=== PATIENT | male | born 1995 | race Caucasian/White ===

== ENCOUNTER 2018-05-02 19:09 | Emergency (ER) | payer OTHER ==
[~2018-05-02] VITALS: Ht 172.7 cm; Wt 74.8 kg
[2018-05-02 19:33] VITALS: BP 124/78
[2018-05-02 20:12] LABS: ABSOLUTE BASOPHIL COUNT 0 /CUMM (0.0-0.2); ABSOLUTE EOSINOPHIL COUNT 0 /CUMM (0.0-0.7); ABSOLUTE LYMPH COUNT 1.4 /CUMM (1.2-3.4); ABSOLUTE MONOCYTE COUNT 0.4 /CUMM (0.10-0.60); BASOPHIL % 0.2 % (0.0-2.0); EOSINOPHIL % 0.1 % (0-5); GRANULOCYTE % 85.9 % (42.2-75.2); HEMATOCRIT 49.8 % (42-52); MEAN CORPUSCULAR HGB 28.5 PG (27.0-31.0); MEAN CORPUSCULAR HGB CONC 34.1 G/DL (33.0-37.0); MEAN CORPUSCULAR VOLUME 83.5 FL (80.0-94.0); PLATELET COUNT 276 /CUMM (130-400); RBC DISTRIBUTION WIDTH 12.3 % (11.5-14.5); RED BLOOD CELL CT 5.96 /CUMM (4.70-6.10); WHITE BLOOD CELL COUNT 12.9 /CUMM (4.8-10.8)
--- NOTE | 2018-05-02 20:21 | RADIOLOGY REPORT ---
EXAMINATION: XR CHEST CLINICAL INFORMATION: Disease, near syncope, EKG changes COMPARISON: None TECHNIQUE: 2 views of the chest were obtained. FINDINGS: No significant abnormality is noted involving the heart, lungs, mediastinum, bony thorax or soft tissues. IMPRESSION: Unremarkable examination.
--- NOTE | 2018-05-02 21:18 | ED GENERAL ADULT ---
History of Present Illness General Chief Complaint: General Adult Stated Complaint: SIB WALK IN FOR IRREGULAREKGU Source: patient Exam Limitations: no limitations Vital Signs & Intake/Output Vital Signs & Intake/Output Vital Signs Date Time Temp Pulse Resp B/P B/P Pulse O2 O2 Flow FiO2 Mean Ox Delivery Rate 05/02 1933 98.0 112 18 124/78 97 Room Air ED Intake and Output 05/03 0000 05/02 1200 Intake Total Output Total Balance Patient 165 lb Weight Allergies Coded Allergies: No Known Allergies (05/02/18) Triage Note: 22M HAS BEEN FEELING LIGHTHEADED AND DIZZY TODAY, AT 12PM AND WENT TO WALK IN AROUND 5:30PM DUE TO ABNORMAL EKG. APPEARS TO HAVE ST SEGMENT CHANGES TO INFERIOR LEADS AND PVC'S. DENIES ANY CHEST PAIN. HAS HAD UNRESOLVED NAUSEA ALL DAY AND DENIES VOMITING. DENIES PALPITATIONS. ONLY PAIN REPORTED IS HEADACHE SINCE THIS MORNING WITH DOUBLE VISION Triage Nurses Notes Reviewed? yes Onset: Gradual Duration: hour(s): Injury Environment: work HPI: 22yo male presents to ED sent in by urgent care for "abnormal EKG". Patient states that earlier today while he was at work he began feeling dizziness, nausea, headache. Patient states he went to urgent care for evaluation and they sent him here because his EKG was abnormal. Patient states that currently his symptoms have improved however he does feel mild headache at this time. Patient denies chest pain, dyspnea, fevers, chills, sick contact, vomiting. (Missy Durand) Past History Travel History Traveled to [place] past 21 day No Medical History Any Pertinent Medical History? none Surgical History Surgical History: non-contributory Psychosocial History What is your primary language [place] Tobacco Use: Never used Family History Hx Contributory? No (Missy Durand) Review of Systems Review of Systems Constitutional: Reports: see HPI. EENTM: Reports: no symptoms. Respiratory: Reports: no symptoms. Cardiovascular: Reports: see HPI. GI: Reports: see HPI. Genitourinary: Reports: no symptoms. Musculoskeletal: Reports: no symptoms. Skin: Reports: no symptoms. Neurological/Psychological: Reports: see HPI. Hematologic/Endocrine: Reports: no symptoms. Immunologic/Allergic: Reports: no symptoms. All Other Systems: Reviewed and Negative (Missy Durand) Physical Exam Physical Exam General Appearance: well developed/nourished, no apparent distress, alert, awake Head: atraumatic, normal appearance Eyes: Bilateral: normal appearance. Ears, Nose, Throat: hearing grossly normal Neck: normal inspection, supple, full range of motion Respiratory: normal breath sounds, no respiratory distress, lungs clear Cardiovascular: regular rate/rhythm Gastrointestinal: normal bowel sounds, soft, non-tender, no organomegaly Back: normal inspection, normal range of motion Extremities: normal inspection, normal range of motion Neurologic/Psych: awake, alert, oriented x 3, sieve repairer II-XII nml as tested, cerebellar testing within normal limits Skin: intact, normal color, warm/dry Core Measures ACS in differential dx? No CVA/TIA Diagnosis: No Sepsis Present: No Sepsis Focused Exam Completed? No (Norma DENNISON,Missy Verdugo) Progress Differential Diagnoses I considered the following diagnoses in my evaluation of the patient: [ Arrhythmia, electrolyte abnormality, anemia, vertigo, gastroenteritis, viral syndrome, PE] Plan of Care: Orders Procedure Date/time Status THYROID STIMULATING HORMONE 05/02 1959 Complete FREE T4 05/02 1959 Complete TROPONIN LEVEL 05/02 1939 Complete D-DIMER 05/02 1939 Complete COMPREHENSIVE METABOLIC PANEL 05/02 1939 Complete CBC WITHOUT DIFFERENTIAL 05/02 1939 Complete EKG 05/02 1923 Active Laboratory Tests 05/02/181958: Anion Gap 14, Estimated GFR > 60, BUN/Creatinine Ratio 18.3, Glucose 120 H, Calcium 10.4 H, Total Bilirubin 0.7, AST 30, ALT 58, Alkaline Phosphatase 50, Troponin I < 0.01, Total Protein 8.5 H, Albumin 5.0, Globulin 3.5, Albumin/ Globulin Ratio 1.4, TSH 0.931, Free T4 1.25, D-Dimer High Sensitivty < 200, CBC w Diff NO MAN DIFF REQ, RBC 5.96, MCV 83.5, MCH 28.5, MCHC 34.1, RDW 12.3, MPV 8.0, Gran % 85.9 H, Lymphocytes % 10.8 L, Monocytes % 3.0, Eosinophils % 0.1, Basophils % 0.2, Absolute Granulocytes 11.0 H, Absolute Lymphocytes 1.4, Absolute Monocytes 0.4, Absolute Eosinophils 0, Absolute Basophils 0 05/02/181946: TSH Cancelled, Free T4 Cancelled EKG from urgent care shows sinus rhythm with PVCs, stable. EKG here in the emergency department is stable, sinus rhythm, no acute ischemic changes. Patient's labs are stable, no electrolyte abnormality, troponin enzyme negative, d-dimer negative. No abnormal findings on exam. Patient feels ready to go home at this time. He was offered Zofran here in the emergency room on however he declines. He was given a referral to primary care. He is also given strict return precautions. The patient agrees with plan of care. Diagnostic Imaging: Viewed by Me: Radiology Read. Discussed w/RAD: Radiology Read. Radiology Impression: PATIENT: CJ RAMESH PRESENT AGE : 22 PATIENT ACCOUNT NO: [id number] : 94 LOCATION: [facility] ORDERING PHYSICIAN: Deyvi Kennedy MD SERVICE DATE: 05/02/18 EXAM TYPE: RAD - XRY-CHEST XRAY, TWO VIEWS EXAMINATION: XR CHEST CLINICAL INFORMATION: Disease, near syncope, EKG changes COMPARISON: None TECHNIQUE: 2 views of the chest were obtained. FINDINGS: No significant abnormality is noted involving the heart, lungs, mediastinum, bony thorax or soft tissues. IMPRESSION: Unremarkable examination. DICTATED BY: Marquita Bauman MD DATE/TIME DICTATED:05/02/182017 COMPENSATION VICE PRESIDENT:MARLYS DATE/TIME TRANSCRIBED:05/02/182017 CONFIDENTIAL, DO NOT COPY WITHOUT APPROPRIATE AUTHORIZATION. <Electronically signed in Other Vendor System> SIGNED BY: Marquita Bauman MD 05/02/182020 Initial ED EKG: sinus rhythm @89bpm, nonspecific ST changes Prior EKG: unchanged (PVCs) (Norma DENNISON,Missy Verdugo) Departure Departure Disposition: HOME OR SELF CARE Condition: Stable Clinical Impression Primary Impression: Dizziness Secondary Impressions: Headache, Nausea Referrals: Patient Has No Primary Care Dr (PCP/Family) Additional Instructions: Increase fluids and rest. You may take Tylenol or ibuprofen as prescribed for headache. With Any worsening symptoms please return here to the emergency department. Otherwise follow-up with primary care doctor you were referred to today. Please note that there might be incidental findings in your evaluation that are unrelated to the current emergency department visit. Please notify your primary care doctor about this emergency department visit in order to obtain and review all of the testing performed so that these incidental findings can be monitored as needed. If you had an x-ray performed, please understand that some fractures may not be seen on the initial set of x-rays. If your symptoms persist you might need a repeat set of x-rays to check for such a fracture. If you had a laceration evaluated, please understand that foreign bodies such as glass or wood may not be visible to the naked eye or on plain x-rays. If the wound becomes red, swollen, increasingly more painful or if there is any drainage from the wound, please have it reevaluated by a physician for the possibility of a retained foreign body. If you're unable to follow up as outlined in the discharge instructions please return to the emergency department. Thank you for choosing the [facility] Emergency Department for your care. It was a pleasure to serve you today. Departure Forms: Customer Survey General Discharge Information (Missy Durand) PA/[employer] Co-Sign Statement Statement: ED Attending supervision documentation- [] I saw and evaluated the patient. I have also reviewed all the pertinent lab results and diagnostic results. I agree with the findings and the plan of care as documented in the PA's/[employer]'s documentation. [x] I have reviewed the ED Record and agree with the PA's/[employer]'s documentation. [] Additions or exceptions (if any) to the PAs/[employer]'s note and plan are summarized below: [] (Brent LEA,Deyvi Infante) Critical Care Note Critical Care Note Critical Care Time: non-applicable (Missy Durand)
== END 2018-05-02 21:46 ==
LOC: ERH 19:09
PROVIDERS: Pediatrics
DX: R42 Dizziness and giddiness (principal); R51 Headache; R11.0 Nausea; R94.31 Abnormal electrocardiogram [ECG] [EKG]
CPT/HCPCS: 71046; 93005; 93010